=== PATIENT | female | born 2000 | race Hispanic/Latino ===

== ENCOUNTER 2021-01-09 17:10 | Emergency (ER) | payer OTHER ==
[~2021-01-09] VITALS: Ht 172.7 cm; Wt 74.4 kg
[~2021-01-09 17:10] MED LIST: EFFER-K 10 MEQ10 MEQ PO; IBUPROFEN400 MG PO
--- OUTSIDE RECORDS SUMMARY | 2021-01-09 17:12 | XMS ---
PreManage Notification: CHARITO SHORT [facility] Representative Events No recent Security Events currently on file CRITERIA MET - Group Notification CARE PROVIDERS Jarad Wolfe PA-C Physician Melter Caster Current PHONE: Unknown Fatmata has no Care Guidelines for this patient. Wanda VISIT COUNT (12 MO.) 1 JOHNNIE Mcmahon TOTAL 1 NOTE: Visits indicate total known visits. ED/UCC VISIT TRACKING (12 MO.) 01/09/2021 17:11 JOHNNIE Deshpande OR TYPE: Emergency COMPLAINT: - LEFT ANKLE INJ INPATIENT VISIT TRACKING (12 MO.) No inpatient visits to display in this time frame [email or web address]
[2021-01-09] MEDS ORDERED: CRUTCH1 EACH MISC (18:25)
[2021-01-09] MEDS ORDERED: HYDROCODON-ACE1 EA10 PO (18:25)
== END 2021-01-09 19:19 | disposition home or self-care (01) ==
LOC: ED 17:10
DX: S82.832A Other fracture of upper and lower end of left fibula, initial encounter for closed fracture (principal); S82.302A Unspecified fracture of lower end of left tibia, initial encounter for closed fracture; W50.0XXA Accidental hit or strike by another person, initial encounter; Y93.66 Activity, soccer
CPT/HCPCS: 29515; 73590; 73610; 99283-25

== ENCOUNTER 2021-01-13 05:45 | Day surgery (SDC) | payer OTHER ==
[~2021-01-13] VITALS: Ht 172.7 cm; Wt 74.5 kg
[~2021-01-13 05:45] MED LIST changes: +CRUTCH1 EACH MISC; +HYDROCODON-ACE1 EA10 PO
--- NOTE | 2021-01-13 06:18 | NUR ---
0606 COVID nasal swab obtained and sent to Lab without incident. Loretta Hernandez, TUBE BACKER
--- NOTE | 2021-01-13 08:06 | NUR ---
PT ALERT, ORIENTED AND SEEMS A BIT OVERWHELMED. SPENT TIME ENCOURAGING VADIM CONNOR BEGAN TO PREP PT. PTS' MOTHER IS AT PT BS. GAVE BLESSING, WILL FOLLOW NEEDED
[2021-01-13] MEDS ORDERED: CELECOXIB200 MG PO (10:25)
[2021-01-13] MEDS ORDERED: HYDROCODON-ACE1 EA10 PO (10:26)
--- NOTE | 2021-01-13 10:32 | NUR ---
01/13/21 1032 Chelsie Narvaez 1027-PATIENT ARRIVED TO PACU ON 6L MASK RR EVEN NONAROUSABLE. SR. IVF INFUSING. LEFT LEG ON PILLOW ICE APPLIED, BOOT IN PLACE. COOL TOES CAP REFILL LESS THAN 1 SECOND. [facility] PEDAL PULSE.
--- NOTE | 2021-01-13 11:22 | NUR ---
PATIENT BACK IN DAY SURGERY ROOM FROM PACU. DENIES PAIN AND NAUSEA. C/O NUMBNESS AND TINGLING IN LEFT FOOT AND TOES. BRACE ON LEFT ANKLE. LEFT ANKLE DRESSING CDI. LEFT ANKLE ELEVATED ON PILLOW. ICE PACK TO LEFT ANKLE. VS CHECKED. IV SITE WNL. ICE WATER PLACED AT BEDSIDE. CALL LIGHT WITHIN REACH. MOTHER AT BEDSIDE.
--- NOTE | 2021-01-13 14:38 | NUR ---
1230: PATIENT TOLERATED FELISHA CRACKERS AND WATER. ASSISTED OOB AND TO BATHROOM WITH USE OF CRUTCHES. GAIT STEADY. VOID WITHOUT DIFFICULTY. GAIT STEADY BACK TO ROOM. 1315: VS CHECKED. PATIENT MEDICATED FOR PAIN WITH 1 TABLET OF NORCO. 1330: DISCHARGE INSTRUCTIONS GIVEN TO PATIENT AND MOTHER. IV DC'D WNL. TIP INTACT. DRESSING APPLIED. PATIENT DRESSED WITH HELP FROM MOTHER. PATIENT DISCHARGED TO HOME WITH MOTHER VIA WHEELCHAIR.
--- NOTE | 2021-01-20 10:10 | OR ---
[facility] [address] [place], [place] [address] Signed DATE OF OPERATION: 01/13/2021 SURGEON: Elena Clifford MD PREOPERATIVE DIAGNOSIS: Left ankle Maisonneuve fracture dislocation. POSTOPERATIVE DIAGNOSIS: Left ankle Maisonneuve fracture dislocation. PROCEDURES PERFORMED: Open reduction and internal fixation posterior malleolus, left ankle, syndesmosis left ankle. RESEARCH PROGRAM INTERNSHIP: Nette Velazquez PA-C. Nette was present and critical for all portions of procedure. ANESTHESIA: General. BLOOD LOSS: None. TOURNIQUET TIME: 50 minutes. IMPLANTS: Two 3 x 5 x 40 screws and TightRope. BRIEF HISTORY: Charito is a 20-year-old female, who suffered an injury fracturing her posterior malleolus and her fibula proximally creating a Maisonneuve fracture dislocation. She did have widening of the mortise. She was seen in the ER, placed in the posterior splint in equinus, and thus when she came to my office, she was posteriorly subluxed about 50% and it was felt that urgent surgery to reduce the ankle joint was necessary. Risks and benefits of this were discussed with her and she elected to proceed. DESCRIPTION OF PROCEDURE: Once consent was obtained, she was taken to the operating room after adequate Electronically Signed By: ELENA CLIFFORD MD 01/18/21 0820 Electronically Signed By: ELENA CLIFFORD MD 01/22/21 0728 PATIENT NAME: CHARITO SHORT OPERATIVE REPORT DATE OF : [birth year] REPORT #: [id number] PHYSICIAN: ELENA CLIFFORD MD PCP: NO PRIMARY CARE PHYSICIAN REPORT IS CONFIDENTIAL AND NOT TO BE RELEASED WITHOUT AUTHORIZATION [facility] [address] [place], [place] [address] Signed anesthesia, was placed on the operating room table on a hip bump. The leg was placed in well-padded proximal thigh tourniquet and prepped and draped in a standard sterile fashion. The leg was exsanguinated using an Esmarch bandage and tourniquet inflated to 250 mmHg. A 2-inch lateral incision was made at the posterior edge of the lateral malleolus and blunt dissection was taken along the posterior malleolus into the posterior space behind the tibia. A clear space was then bluntly dissected. Once this was accomplished, we were able to place a sharp tenaculum on the posterior malleolus and manipulated into position with the ankle dorsiflexed and reduced. The anterior portion of the clamp was then placed through a 1.5-inch incision anteriorly. The skin incision was taken down through the skin and subcutaneous tissue and blunt dissection was taken down to the bone. The clamp was placed on the bone. Once it was then positioned, we manipulated the posterior malleolus until it was well reduced and clamped it. This was held by Nette during the remainder of the procedure. Once we got that into position and stable, a 3.5 mm screw was placed from anterior to posterior, engaging the body of the fragment posteriorly in a superior position. Second screw was then placed inferior to this just above the joint line and again, this was done under biplanar fluoroscopy. The screws were tightened and excellent purchase in the bone was obtained. The clamp was removed. The ankle mortise was still widened, so the lateral malleolus was clamped to the tibia. A separate stab incision was made anterior medially for the ball-tipped clamp. Once this was adequately reduced and the medial mortise was well reduced, the guide pin for the Arthrex TightRope was advanced from the fibula across the body of the tibia and out the medial side. This was over-reamed using the 4 mm reamer. The tightrope was then advanced across and the medial button was flipped and tightened against the medial malleolus. The TightRope was then tightened on the lateral side until it was well-seated very firmly. The clamp was removed and the mortise remained reduced. The suture ends were cut and all wounds were cleansed and closed with 3-0 Monocryl for the subcutaneous tissue and marline for the skin. Wounds were dressed with Allevyn dressing, sterile gauze, and an Ryan wrap. She tolerated the procedure well. All sponge, needle, and instrument counts were correct. Elena Clifford MD BA/MODL /[id number] Electronically Signed By: ELENA CLIFFORD MD 01/18/21 0820 Electronically Signed By: ELENA CLIFFORD MD 01/22/21 0728 PATIENT NAME: CHARITO SHORT OPERATIVE REPORT DATE OF : [birth year] REPORT #: [id number] PHYSICIAN: ELENA CLIFFORD MD PCP: NO PRIMARY CARE PHYSICIAN REPORT IS CONFIDENTIAL AND NOT TO BE RELEASED WITHOUT AUTHORIZATION [address] [place], [place] [address] Signed Copies: ~ Electronically Signed By: ELENA CLIFFORD MD 01/18/21 0820 Electronically Signed By: ELENA CLIFFORD MD 01/22/21 0728 PATIENT NAME: DEJACHARITO OPERATIVE REPORT DATE OF : [birth year] REPORT #: [id number] PHYSICIAN: ELENA CLIFFORD MD PCP: NO PRIMARY CARE PHYSICIAN REPORT IS CONFIDENTIAL AND NOT TO BE RELEASED WITHOUT AUTHORIZATION
== END 2021-01-13 13:30 | disposition home or self-care (01) ==
LOC: DS 05:45
PROVIDERS: ATTEND Specialist
PROC: 0SSF0ZZ Reposition Right Ankle Joint, Open Approach (ICD-10-PCS; 2021-01-13)
PROC: 0QSG04Z Reposition Right Tibia with Internal Fixation Device, Open Approach (ICD-10-PCS; principal; 2021-01-13 10:15)
DX: S82.862A Displaced Maisonneuve's fracture of left leg, initial encounter for closed fracture (principal); X50.1XXA Overexertion from prolonged static or awkward postures, initial encounter; Y93.66 Activity, soccer; Z20.822 Contact with and (suspected) exposure to COVID-19
CPT/HCPCS: 64447; 73600; 76942; 84703; C1713; C9803; J0690; J1100; J2250; J2405; J7121; U0003

== ENCOUNTER 2022-04-15 06:28 | Day surgery (SDC) | payer OTHER ==
[~2022-04-15] VITALS: Ht 172.7 cm; Wt 74.0 kg
[~2022-04-15 06:28] MED LIST changes: +CELECOXIB200 MG PO
[2022-04-15] MEDS ORDERED: HYDROCODON-ACE1 EA10 PO (08:45)
--- NOTE | 2022-04-15 08:55 | NUR ---
04/15/22 0855 Isis Clifford PT TO PACU WAKE BUT DROWSY SHE IS MOVING ALL LIMBS TRYING TO SCRATCH HER FACE O2 OFF PT MAINTAINS SATS ABOVE 95%.
--- NOTE | 2022-04-16 13:24 | OR ---
[facility] [address] [place], [place] [address] Signed DATE OF OPERATION: 04/15/2022 SURGEON: Elena Clifford MD PREOPERATIVE DIAGNOSIS: Painful hardware, left ankle. POSTOPERATIVE DIAGNOSIS: Painful hardware, left ankle. PROCEDURE PERFORMED: Removal of hardware deep, left ankle. ALL ROUND BUTCHER: None. ANESTHESIA: MAC with local. BLOOD LOSS: Minimal. BRIEF HISTORY: Charito is a 21-year-old female, who has had a Maisonneuve injury of her ankle. She had undergone successful ORIF and healed, the hardware was painful under her skin. She wished to have it removed. Risks, benefits, and alternatives were discussed at length and she understood and wished to proceed. DESCRIPTION OF PROCEDURE: Once consent was obtained, she was taken to the operating room after adequate anesthesia. She was placed on the operating room table. All downside pressure points well padded. The left leg was prepped and draped in a standard sterile fashion. The medial, lateral, and anterior incisions were injected with 0.25% Marcaine with epinephrine. The medial button was approached after localization using the C-arm. A 1 cm incision was made overlying it and dissection was taken down was freed from surrounding soft tissue and using a knife, we cut it from the underlying suture and removed it. The wound was copiously irrigated and closed with 3-0 nylon. The lateral button was approached similarly and removed. It was then closed with 3-0 nylon. The anterior wound was then opened and sharp dissection was taken down to the screws. The proximal screw was easily identified and removed. The distal wound was a little bit Electronically Signed By: ELENA CLIFFORD MD 04/16/22 1324 PATIENT NAME: CHARITO SHORT OPERATIVE REPORT DATE OF : [birth year] REPORT #: [id number] PHYSICIAN: ELENA CLIFFORD MD PCP: JANIE LOPEZ REPORT IS CONFIDENTIAL AND NOT TO BE RELEASED WITHOUT AUTHORIZATION [facility] [address] [place], [place] [address], [place] [address] Signed to be dug out and then removed using the screwdriver. Both screws were successfully removed. The wound was copiously irrigated, closed with 3-0 nylon. The wounds were dressed with Allevyn, 4x8, and Ryan wrap. She tolerated the procedure well. All sponge, needle, and instrument counts were correct. Elena Clifford MD BA/BRENL /[id number] Copies: ~ Electronically Signed By: ELENA CLIFFORD MD 04/16/22 1324 PATIENT NAME: CHARITO SHORT OPERATIVE REPORT DATE OF : [birth year] REPORT #: [id number] PHYSICIAN: ELENA CLIFFORD MD PCP: JANIE LOPEZ REPORT IS CONFIDENTIAL AND NOT TO BE RELEASED WITHOUT AUTHORIZATION
== END 2022-04-15 09:20 | disposition home or self-care (01) ==
LOC: DS 06:28
PROVIDERS: ATTEND Specialist
PROC: 0SPG04Z Removal of Internal Fixation Device from Left Ankle Joint, Open Approach (ICD-10-PCS; principal; 2022-04-15 09:00)
DX: T84.84XA Pain due to internal orthopedic prosthetic devices, implants and grafts, initial encounter (principal); Y83.9 Surgical procedure, unspecified as the cause of abnormal reaction of the patient, or of later complication, without mention of misadventure at the time of the procedure; S82.86 Maisonneuve's fracture
CPT/HCPCS: 73600; J0690; J2704; J3010; J7121